=== PATIENT | female | born 1960 | race Caucasian/White ===

== ENCOUNTER 2019-05-07 21:15 | Emergency (ER) | payer BC ==
[2019-05-07 21:31] VITALS: BP 184/108; PULSE 100; TEMP 98.1; BMI 22.0
--- NOTE | 2019-05-07 22:01 | PDOC ---
Documentation entered by Libby Yousif SCRIBE, acting as scribe for Sage Stewart MD. Sage Stewart MD: This documentation has been prepared by the oraliaibe, Libby Yousif SCRIBE, under my direction and personally reviewed by me in its entirety. I confirm that the documentation accurately reflects all work , treatment, procedures, and medical decision making performed by me. History of Present Illness - General Chief Complaint: Pain Stated Complaint: LEFT KNEE & ANKLE PAIN History Source: Patient Exam Limitations: No Limitations - History of Present Illness Initial Comments: 05/07/19 21:49 The patient is a 59-year-old female who was sent to the emergency department by PCP for evaluation for neck stiffness, swollen glands, and a 1-week history of left lower extremity swelling. The patient reports shes been having the neck stiffness and swollen glands for over a week now since last shes been having left leg swelling. The patient states she alternates between [place] and [place]. The patient was driving down today and called her doctor to make an appointment. Upon hearing the symptoms, the patient was referred to the ER for further evaluation. The patient reports about 3 weeks prior she was discontinued off her diuretic medication secondary to syncopal episode due to dehydration. The patient reports having blood work done and having a Holter monitor in place, which was unremarkable. Denies chest pain, shortness of breath , or fever. PAST MEDICAL HISTORY: no significant history PAST SURGICAL HISTORY: no significant history FAMILY HISTORY: no pertinent history SOCIAL HISTORY: Pt lives with family, alternated between [place] and [place]. MEDICATIONS: reviewed ALLERGIES: As per nursing notes ROS: General: No fevers or chills, no weakness, no weight loss HEENT: +swollen glands. No change in vision. No sore throat,. No ear pain Neck: +neck stiffness. CardioVascular: No chest pain or shortness of breath Respiratory: No cough, or wheezing. Gastrointestinal: no nausea, vomiting, diarrhea or constipation, No rectal bleeding Genitourinary: No dysuria, hematuria, or frequency Musculoskeletal: +left lower extremity swelling. No other joint or muscle pain or swelling Neurologic: No headache, vertigo, dizziness or loss of consciousness Psychiatric: nor depression Skin: No rashes or easy bruising Endocrine: no increased thirst or abnormal weight change Allergic: no skin or latex allergy All other systems reviewed and normal PE: GENERAL: The patient is awake, alert, and fully oriented, in no acute distress. HEAD: Normal with no signs of trauma. EYES: Pupils equal, round and reactive to light, extraocular movements intact, sclera anicteric, conjunctiva clear. EXTREMITIES: Lower extremity: +mild non pitting edema to the left lower extremity from the knee to the ankle, no tenderness, no erythema, no increased warmth, neurovascular intact, no palpable cords. Rest of the exam: Normal range of motion, no edema. NEUROLOGICAL: Normal speech, normal gait. PSYCH: Normal mood, normal affect. SKIN: Warm, Dry, normal turgor, no rashes or lesions noted. 05/07/19 22:00 Assessment and plan: This is a 59-year-old female who comes in complaining of left lower extremity swelling. Patient recently had a car ride down from [place]. Patient called her primary care doctor who told her to come in and get an ultrasound Doppler. Patient also noted that she has had a number of tick bites in the past so a Lyme titer was also sent. In addition to basic labs. 05/07/19 22:43 Ultrasound Doppler shows a Sosa's cyst that most likely is ruptured. No DVT Patient given Luis wrap and discharged we will follow-up with her primary care doctor Past History - Past Medical History Allergies/Adverse Reactions: Allergies Allergy/AdvReac Type Severity Reaction Status Date / Time Cephalosporins Allergy Verified 05/07/19 21:17 Home Medications: Ambulatory Orders Aspirin [Aspirin EC] 81 mg PO HS 05/07/19 Chlorthalidone 12.5 mg PO 05/07/19 Lisinopril 20 mg PO HS 05/07/19 - Psycho Social/Smoking Cessation Hx Smoking History: Current every day smoker Number of Cigarettes Smoked Daily: 20 'Breaking Loose' booklet given: 01/05/14 Hx Alcohol Use: Yes (OCCAS.) Substance Use Type: None *Physical Exam - Vital Signs Last Vital Signs Temp Pulse Resp BP Pulse Ox 98.1 F 100 H 18 184/108 H 100 05/07/19 21:16 05/07/19 21:16 05/07/19 21:16 05/07/19 21:16 05/07/19 21:16 ED Treatment Course - LABORATORY CBC & Chemistry Diagram: 05/07/19 21:45 05/07/19 21:45 - RADIOLOGY Radiology Studies Ordered: Category Date Time Status DUPLEX VASCUL US-1 LEG [US] Stat Ultrasound 05/07/19 21:38 Ordered Discharge - Discharge Information Problems reviewed: Yes Clinical Impression/Diagnosis: Sosa's cyst, ruptured Condition: Good Disposition: HOME - Admission No - Follow up/Referral - Patient Discharge Instructions Additional Instructions: Tylenol or Motrin as needed for the pain. Wear the Luis wrap for support and comfort. Follow-up with your primary care doctor or an orthopedist. Return to the emergency department immediately with ANY new, persistent or worsening symptoms. Continue any medications as previously prescribed by your physician. You should follow up with your primary doctor as soon as possible regarding today's emergency department visit. . Please make sure your doctor reviews the results of your emergency evaluation. Thank you for coming to the Emergency Department today for your care. It was a pleasure to see you today. Please note that your evaluation is INCOMPLETE until you follow-up with your doctor. - Post Discharge Activity
[2019-05-07 22:04] LABS: BASO % 0.6 % (0-2.0); EOS % 3.1 % (0-4.5); HEMATOCRIT 39.9 % (32.4-45.2); HEMOGLOBIN 13.7 GM/dl (10.7-15.3); LYMPH % 34.7 % (8-40); MCH 34.3 pg (25.7-33.7); MCHC 34.5 g/dl (32.0-36.0); MEAN CELL VOLUME 99.5 fl (80-96); MEAN PLT VOLUME 7.5 fl (7.5-11.1); MONO % 6.1 % (3.8-10.2); NEUT % 55.5 % (42.8-82.8); PLATELET COUNT 299 K/MM3 (134-434); RBC 4.01 M/mm3 (3.60-5.2); RDW 12.6 % (11.6-15.6); WHITE BLOOD COUNT 6.4 K/mm3 (4.0-10.8)
[2019-05-07 22:22] LABS: BILIRUBIN,TOTAL 0.6 mg/dl (0.2-1); CALCIUM 8.9 mg/dl (8.5-10); CREATININE 0.7 mg/dl (0.55-1.3); POTASSIUM 3.8 mmol/L (3.5-5.1); TOT PROT 6.7 g/dl (6.4-8.2)
== END 2019-05-07 22:48 | disposition home or self-care (01) ==
LOC: FER 21:15
DX: F17.210 Nicotine dependence, cigarettes, uncomplicated (principal); Z88.8 Allergy status to other drugs, medicaments and biological substances; M66.0 Rupture of popliteal cyst
CPT/HCPCS: 36415; 80053; 85025; 86618; 93971-TC; 99283-25